=== PATIENT | male | born 1960 | race Caucasian/White ===

== ENCOUNTER 2017-10-16 07:27 | Inpatient (IN) | payer MEDICAID ==
[~2017-10-16] VITALS: Ht 165.1 cm; Wt 100.7 kg
[~2017-10-16 07:27] MED LIST: ACET-2178 PO; BACL-141 PO; DOCU-138 PO
[2017-10-16] MEDS ORDERED: CEFTRIAXONE 1 G PREMIX 50 ML IV ONE (08:45)
[2017-10-16 09:19] LABS: BASOPHILS % 0.7 % (0.0-2.0); EOSINOPHILS % 2.5 % (0.0-5.0); HEMATOCRIT. 43.4 % (42.0-52.0); HEMOGLOBIN. 14.6 g/dL (14.0-18.0); LYMPHOCYTES % 17.9 % (20.0-50.0); MEAN CORPUSCULAR HEMOGLOBIN 30.7 pg (28.0-32.0); MEAN CORPUSCULAR VOLUME 91.5 fL (80.0-94.0); MEAN PLATELET VOLUME 8.3 fl (7.4-10.4); MONOCYTES % 9.1 % (2.0-8.0); NEUTROPHILS % 69.8 % (40.0-76.0); PLATELET 258 x1000/uL (130-400); RED BLOOD CELL COUNT 4.74 mill/uL (4.7-6.1); RED CELL DISTRIBUTION WIDTH 13.3 % (11.6-14.6)
[2017-10-16 09:30] LABS: CHLORIDE 104 mEq/L (98-107)
[2017-10-16] MEDS ORDERED: IOHEXOL-350 100 ML BOTTLE ONE (10:05)
[2017-10-16] MEDS ORDERED: ONDANSETRON HCL 4MG/2ML VIAL IV PRN (15:00)
[2017-10-16] MEDS ORDERED: HYDROCODONE/ACETAMINOPHEN 5/325MG TABLET PO PRN (15:00)
[2017-10-16] MEDS ORDERED: CLONIDINE 0.1MG TABLET PO PRN (15:00)
[2017-10-16 16:30] VITALS: BP 119/78
[2017-10-16] MEDS: DEXT 5%/0.9% NACL 1,000 ML IV SCH (19:06)
[2017-10-16] MEDS ORDERED: VANCOMYCIN 1,750 MG in DEXT 5% WATER 500 ML IV NR (19:30)
[2017-10-16 20:00] VITALS: BP 100/66
[2017-10-17] VITALS: BP 109/69
[2017-10-17 04:00] VITALS: BP 96/58
[2017-10-17 07:43] LABS: HEMATOCRIT 37.4 % (42.0-52.0); INR 1.1; MEAN CORPUSCULAR HEMOGLOBIN 31.2 pg (28.0-32.0); MEAN CORPUSCULAR VOLUME 89.9 fL (80.0-94.0); PLATELET 244 x1000/uL (130-400); PROTHROMBIN TIME 11.2 sec (9.4-11.6); RED BLOOD CELL COUNT 4.16 mill/uL (4.7-6.1)
[2017-10-17] MEDS ORDERED: VANCOMYCIN 1500MG in DEXTROSE 5% WATER 250ML IV SCH (08:00)
[2017-10-17 08:34] VITALS: BP 98/63
[2017-10-17 08:39] LABS: CHLORIDE 105 mEq/L (98-107)
[2017-10-17] MEDS: VANCOMYCIN 1,500 MG in SODIUM CHLORIDE 0.9% 250 ML IV SCH ×2 (09:35→21:27)
[2017-10-17 12:00] VITALS: BP 110/75
[2017-10-17] MEDS: DEXT 5%/0.9% NACL 1,000 ML IV SCH (13:58)
[2017-10-17 16:00] VITALS: BP 118/61
[2017-10-17 20:00] VITALS: BP 103/70
[2017-10-17] MEDS: PANTOPRAZOLE SODIUM 40 MG/VIAL IV SCH (21:27)
[2017-10-18] VITALS: BP_SYST 116
[2017-10-18 04:00] VITALS: BP 109/70
[2017-10-18 05:45] LABS: INR 1.1; PARTIAL THROMBOPLASTIN TIME 29.2 sec (23.4-31.0); PROTHROMBIN TIME 11.6 sec (9.4-11.6)
[2017-10-18 06:17] LABS: CHLORIDE 108 mEq/L (98-107)
[2017-10-18 06:18] LABS: HEMATOCRIT 37.7 % (42.0-52.0); HEMOGLOBIN 12.7 g/dL (14.0-18.0); MEAN CORPUSCULAR HEMOGLOBIN 30.4 pg (28.0-32.0); MEAN CORPUSCULAR VOLUME 90.4 fL (80.0-94.0); PLATELET 237 x1000/uL (130-400); RED BLOOD CELL COUNT 4.17 mill/uL (4.7-6.1); RED CELL DISTRIBUTION WIDTH 13.2 % (11.6-14.6)
[2017-10-18 08:00] VITALS: BP 102/60
[2017-10-18] MEDS: PANTOPRAZOLE SODIUM 40 MG/VIAL IV SCH ×2 (09:25→21:49)
[2017-10-18] MEDS: VANCOMYCIN 1,500 MG in SODIUM CHLORIDE 0.9% 250 ML IV SCH ×2 (09:25→21:49)
[2017-10-18] MEDS: DEXT 5%/0.9% NACL 1,000 ML IV SCH (09:26)
[2017-10-18] MEDS ORDERED: CEFAZOLIN 1000MG PREMIX 50 ML IV SCH (10:00)
[2017-10-18 12:00] VITALS: BP 107/64
[2017-10-18 16:00] VITALS: BP 108/60
[2017-10-18 20:00] VITALS: BP 100/59
[2017-10-19 01:49] VITALS: BP 97/61
[2017-10-19 04:00] VITALS: BP 109/65
[2017-10-19] MEDS: DEXT 5%/0.9% NACL 1,000 ML IV SCH (05:49)
[2017-10-19 09:28] VITALS: BP 100/63
[2017-10-19] MEDS: VANCOMYCIN 1,500 MG in SODIUM CHLORIDE 0.9% 250 ML IV SCH ×2 (10:38→20:49)
[2017-10-19 13:30] VITALS: BP 105/67
[2017-10-19] MEDS ORDERED: SODIUM CHLORIDE 0.9% 10ML VIAL ONE (14:54)
[2017-10-19 16:17] VITALS: BP 94/67
[2017-10-19] MEDS ORDERED: FENTANYL CITRATE/PF 50MCG/ML 2ML VIAL IV PRN (17:47)
[2017-10-19] MEDS ORDERED: MIDAZOLAM HCL 5 MG/5 ML VIAL IV PRN (17:48)
[2017-10-19] MEDS ORDERED: MIDAZOLAM HCL 5 MG/5 ML VIAL ONE (17:52)
[2017-10-19] MEDS ORDERED: FENTANYL CITRATE/PF 50MCG/ML 2ML VIAL ONE (17:53)
[2017-10-19] MEDS ORDERED: DIPHENHYDRAMINE 50MG/ML VIAL ONE (17:54)
[2017-10-19 20:00] VITALS: BP 126/53
[2017-10-20] VITALS: BP 113/71
[2017-10-20] MEDS: METOCLOPRAMIDE HCL 10MG/2ML VIAL IV SCH ×5 (01:24→23:52)
[2017-10-20] MEDS: DEXT 5%/0.9% NACL 1,000 ML IV SCH (03:44)
[2017-10-20 04:00] VITALS: BP 94/55
[2017-10-20 08:00] VITALS: BP 104/64
[2017-10-20 12:00] VITALS: BP 108/71
[2017-10-20 20:00] VITALS: BP 107/67
[2017-10-20] MEDS: VANCOMYCIN 1,500 MG in SODIUM CHLORIDE 0.9% 250 ML IV SCH (21:46)
[2017-10-21] VITALS: BP 111/58
[2017-10-21 00:22] VITALS: BP 111/58
[2017-10-21] MEDS ORDERED: ASCORBIC ACID 250 MG TABLET PO SCH (09:00)
[2017-10-21] MEDS ORDERED: MULTIVITAMINS,THER W-MINERALS TABLET PO SCH (09:00)
[2017-10-21] MEDS ORDERED: ZINC SULFATE 220 MG ( 50 ) CAPSULE PO SCH (09:00)
== END 2017-10-21 03:50 | DRG 252 ==
LOC: ER 07:34 → INTOOBSV 11:05 → OBSVTOIN 11:05 → 5WST 11:05 → ENRESERV 12:21
PROVIDERS: ADMIT Internal Medicine; ATTEND Internal Medicine
PROC: 0D20XUZ Change Feeding Device in Upper Intestinal Tract, External Approach (ICD-10-PCS; principal; 2017-10-19 16:00)
DX: K94.22 Gastrostomy infection (principal); D68.59 Other primary thrombophilia; R53.2 Functional quadriplegia; F03.90 Unspecified dementia, unspecified severity, without behavioral disturbance, psychotic disturbance, mood disturbance, and anxiety; L03.311 Cellulitis of abdominal wall; N28.1 Cyst of kidney, acquired; R13.10 Dysphagia, unspecified; K21.9 Gastro-esophageal reflux disease without esophagitis; K94.23 Gastrostomy malfunction; I10 Essential (primary) hypertension; J44.9 Chronic obstructive pulmonary disease, unspecified
CPT/HCPCS: 36415; 74176; 80048; 80202; 85025; 85027; 85610; 85730; 87040; 96365; 99285; A4216; C9113; J0696; J1200; J2250; J2765; J3010; J3370; J7042; J7050; J7060; Q9967